=== PATIENT | female | born 1995 | race Caucasian/White ===

== ENCOUNTER → 2017-05-26 03:10 | Outpatient (CLI) | payer MEDICAID, SELFPAY ==
[2017-05-29 10:02] LABS: HPV Reflexed? NOT INDICATED
== END ==
PROVIDERS: Visit Provider Nurse Practitioner Women's Health
DX: Z12.4 Encounter for screening for malignant neoplasm of cervix (principal)
CPT/HCPCS: 88175; G0145

== ENCOUNTER → 2017-09-10 18:16 | Outpatient (CLI) | payer SELFPAY ==
[2017-09-10 20:48] LABS: Chlamydia Trachomatis by PCR Negative (Negative); Neisserai gonorrhoeae by PCR Negative (Negative); Probe Check PASS; Sample Adequacy Control PASS; Specimen Processing Control PASS
== END ==
PROVIDERS: Visit Provider Nurse Practitioner Women's Health
DX: Z11.3 Encounter for screening for infections with a predominantly sexual mode of transmission (principal); N98.9 Complication associated with artificial fertilization, unspecified
CPT/HCPCS: 87070; 87077; 87205; 87491; 87591

== ENCOUNTER 2019-09-05 15:18 | Emergency (ER) | payer MEDICAID, SELFPAY ==
[2019-09-05 15:20] VITALS: BP 116/72; PULSE 88; RESP 17; TEMP 36.4; O2SAT 99; BMI 30.7
[2019-09-05] MEDS: Naproxen 500 MG Tablet PO (16:04)
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
== END 2019-09-05 16:57 | disposition home or self-care (01) ==
PROVIDERS: Emergency Provider Emergency Medicine; PCP Nurse Practitioner Family
DX: R68.84 Jaw pain (principal); Z72.0 Tobacco use
CPT/HCPCS: 70110; 99283

== ENCOUNTER 2019-11-03 14:33 | Emergency (ER) | payer MEDICAID, SELFPAY ==
[2019-11-03 14:34] VITALS: BP 139/80; PULSE 84; RESP 18; TEMP 36.6; O2SAT 99; BMI 29.1
--- NOTE | 2019-11-03 14:38 | ED.RN ---
pt refusing to wear mask when asked to place on her ears and over her nose. pt relpied with If you understood i cant breathe and you cannot deny me care if i don't patient was notified that is what we are asking of everyone right now.
--- NOTE | 2019-11-03 14:48 | RAD_ITS ---
STUDY: X-RAY CHEST REASON FOR EXAM: Female, 23 years old. and quot;I want a chest xray, i have rhonchi in all lobes and no its not the COVID. Its either pneumonia or bronchitis. and quot; pt having cough, running nose and congestion for 1 week. pt thinks both ears are blown TECHNIQUE: PA and lateral views of the chest. COMPARISON: None. FINDINGS: The lungs are clear and expanded. There is no demonstrated pleural abnormality. Normal size heart. Normal mediastinum and stacey. Normal visualized pulmonary arteries. Normal visualized aortic arch and descending thoracic aorta. Normal visualized thoracic spine. Normal visualized ribs, clavicles, and shoulders. There is no demonstrated abnormality of the visualized soft tissue structures of the upper abdomen. RAD/Chest PA and Lateral IMPRESSION: Normal x-ray examination of the chest. Electronically Signed: Josiah Bowman, at 15:13 EDT , Service support ,
--- NOTE | 2019-11-03 15:17 | ED.DCSUM_ITS ---
- ER Visit Summary Date of Service: 11/03/19 Chief Complaint: Cough History of Present Illness: The patient is a 23 F who presents with a cough. She has had this cough for 5 days. She states her cough is been productive of yellow and clear sputum. She believes it is due to allergies. She has had 4 allergy attacks this year. She has had multiple negative coronavirus test. No fevers. She also complains of bilateral ear pain. Her doctor did start her on Claritin daily last month. Physical Examination: Vital signs reviewed. HEENT exam unremarkable. Heart is regular rate and rhythm without murmurs. Lungs have diffuse inspiratory and expiratory wheezes throughout. Abdomen is soft and nontender. Extremities reveal no edema. Skin exam normal. Neurologic exam normal. Test Results: Chest x-ray is normal Emergency Department Course and Treatment: Patient has a normal chest x-ray. I will send her home with albuterol and steroids. She will continue her Claritin daily. Treatment Plan: [] Disposition: Discharge Impression: URI This note was generated with [employer] dictation software. It may contain incorrect words, spelling, and punctuation that were not noted in review of the chart prior to signing ED Disposition - Plan for ED Patient: Disposition: Home or Assisted Living Instructions: ED Upper Resp Infec No Abx Tx Prescriptions: Prednisone [Deltasone] 40 mg PO DAILY #10 tab Transmission Status: Pending to [facility] Albuterol Inhaler [Ventolin Hfa] 1 - 2 puff INHALATION Q4H PRN PRN #1 inhaler PRN Reason: Wheezing Transmission Status: Pending to [facility] Referrals: Zena Galvez NP, SERVICE WORKER HELPER-C [Primary Care Provider] -
== END 2019-11-03 15:35 | disposition home or self-care (01) ==
PROVIDERS: Emergency Provider Emergency Medicine; PCP Nurse Practitioner Family
DX: J06.9 Acute upper respiratory infection, unspecified (principal); Z72.0 Tobacco use
CPT/HCPCS: 71046; 99282

== ENCOUNTER → 2021-07-18 | Outpatient (CLI) | payer MEDICAID, SELFPAY ==
[2021-07-18 15:50] LABS: NATERA MAILED SPECIMEN
== END | disposition home or self-care (01) ==
LOC: LAB 14:48
PROVIDERS: PCP Nurse Practitioner Family; Referring Provider Obstetrics & Gynecology; Visit Provider Obstetrics & Gynecology
DX: Z15.01 Genetic susceptibility to malignant neoplasm of breast (principal); Z80.3 Family history of malignant neoplasm of breast
CPT/HCPCS: 36415

== ENCOUNTER 2021-09-18 07:43 | Day surgery (SDC) | payer MEDICAID, SELFPAY ==
[2021-09-18] VITALS (10 sets, daily range): BP systolic 90–108; BP diastolic 53–73; PULSE 53–70; RESP 11–16; TEMP 36.1–36.6; O2SAT 98–100; BMI 27.3
--- NOTE | 2021-09-18 07:27 | HP.PCM_ITS ---
History and Physical Date of Admission: 09/18/21 MR#: [id number] Acct: [id number] Name:SARAI JAQUEZ Rep #: [id number] : 1995 ? ? Provider: Dr. Luna Dang, DO Age/Sex:? 25/F ? ? Location: [facility] Status: Signed Intake Vital Signs ? 08/22/2210:46 08/22/2210:48 Height 5 ft 4 in 5 ft 4 in Weight: 155 lb 6 oz ? BMI 26.6 ? BP 130/80 H ? 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 Genetic testing of female Social History? Smoking Status:? Current every day smoker alcohol intake:? current details:? occasionally substance use type:? does not use caffeine:? Yes (occasionally) what type of physical activity do you participate in:? none seatbelt use:? sometimes do you feel safe at home:? Yes additional social history:? 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 ?She is a at 25 years old and suffers from heavy periods and does not desire to conceive. Initially she came to me for at tubal ligation and ablation procedure but is too young for an ablation. She is now asking for hysterectomy because control medication has failed her in the past, including mirena IUD. Her last pap in 2020 was negative. She had an ultrasound done at [facility] in May this year that showed a 6 x 4 x 5 cm uterus. Her children were born via vaginal delivery. All STD testing has been negative. Family history of ovarian cancer- Negative empower testing. Pregancy History ? ? ? 2 ? Elective abortions ? Hx Para ? ? ? 2 ? Spontaneous abortions ? Hx # Term Pregnancies ? Ectopic pregnancies ? Hx # Pregnancies ? Multiple births ? # of living children ? Past Pregnancies Del. Date Name GA/Weeks Outcome Route Bth Weight Infant Gen Labor Lgth AnesthesiaB Del Locatn Provider FOB 08/20/13 Ayden ? live - full term N ? Male ? ? [facility] Dr. Mendez ? 05/21/16 Susie ? live - full term ? Male ? ? [facility] Dr. Mckeon ? ROS Const ROS Unobtainable: All systems reviewed & are unremarkable except as noted in H Resp Resp: Reports system reviewed and no additional complaints, except as documented; Denies cough GI GI: Reports as per HPI Psych Psych: Reports system reviewed and no additional complaints, except as documented Exam Const General: cooperative, healthy appearing, comfortable and no acute distress Resp Effort & Inspection: normal respiratory effort Skin General: no rashes or lesions noted Psych Appearance: grossly normal Speech and Movement: speech and movement normal Coding Level of Care Code Off vis,est,level 4 Diagnoses Menorrhagia? N92.0 Assessment and Plan Assessment and Plan (1) Menorrhagia: ?Status:?Acute Plan After discussing the patient's diagnosis and treatment plan options, patient wishes to proceed with surgical management.? I have discussed with the patient the risks, benefits, and alternatives of the procedure which include but are not limited to risks of anesthesia, bleeding, infection, possible damage to bowel, bladder, or surrounding vasculature which could lead to additional surgery to evaluate any complications.? Patient agrees to procedure and wishes to proceed.? ACOG/uptodate references given for additional information regarding procedure.? plan for hysterectomy (LAVH) with bilateral salpingectomy, and possible cystoscopy. UPDATE- I have seen the patient and performed any clinically relevant updates to the history and physical exam. Luna Dang DO
[2021-09-18 08:29] LABS: Internal QC Validated? YES +Cl - CLEAR BKGD; Pregnancy, Urine Negative Negative
[2021-09-18] MEDS: Celecoxib 200 MG Capsule 400 MG PO (08:30)
[2021-09-18] MEDS: Acetaminophen 500 MG Tablet 1000 MG PO (08:30)
[2021-09-18] MEDS: Gabapentin 600 MG Tablet PO (08:31)
[2021-09-18] MEDS: Lactated Ringers 1,000 ML 40 ML IV (08:49)
[2021-09-18 08:54] LABS: Hematocrit 37.8 % (37-47); Hemoglobin 12.2 g/dL (12.0-15.0); Mean Corp Hgb Conc 32.3 g/dL (32-36); Mean Corpuscular Hgb 29.8 pg (27.0-32.0); Mean Corpuscular Volume 92.4 fL (81-99); Mean Platelet Vol. 9.4 fl (6.2-12.0); Platelet Count 233 K/mm3 (150-450); RBC Distribution Width CV 12.1 % (11.6-14.6); RBC Distribution Width SD 40.9 fl (35.1-43.9); Red Blood Count 4.09 M/mm3 (4.2-5.4); White Blood Count 7.6 K/mm3 (4.4-11.0)
[2021-09-18 09:20] LABS: Bedside Glucose 80 mg/dL (74-106)
--- NOTE | 2021-09-18 09:23 | DCINST_ITS ---
Discharge Instructions Diet Discharge Diet: No restrictions Activity May resume sexual activity in: 6 weeks Weight Bearing Status: Full weight bearing Dressing / Incision Call your doctor if your incision/area has: Continuous Slow Oozing, Sudden Increased Bleeding, Increased Pain/ Swelling, Increased Redness and Foul Smelling Discharge Call your doctor if you observe: Fever of 101 or Higher, Using more than 1 pad per hour, Shortness of breath, Chest pain and Uncontrolled pain Suture Line Care: Avoid Pulling/Pushing and Avoid Pinching/Bending Remove Dressing in: 1 week (if present) Cleanse incision/area with: Soap & Water and Keep Dressing Clean & Dry Follow Up Care Please Follow Up With: Luna Dang DO When: Call to make an appointment with your doctor for a postop visit in 2 and 6 weeks Test Results: Test results from this visit will be discussed in further detail at your follow- up appointment, if applicable. Discharge Plan Admission Primary Reason for Your Visit: hysterectomy Attending Provider: Luna Dang Primary Care Provider: Beryl Mosquera Discharge Orders/Prescriptions Prescriptions: New ibuprofen 600 mg tablet 600 mg PO Q6H PRN (Reason: pain) 7 Days Qty: 30 0RF Rx Instructions: take as needed for pain with meals oxycodone-acetaminophen [Percocet] 5-325 mg tablet 1 tab PO Q4H PRN (Reason: pain) 7 Days Qty: 30 0RF Continued dextroamphetamine-amphetamine [Adderall] 30 mg tablet 20 mg PO DAILY hydroxyzine pamoate [Vistaril] 25 mg capsule 25 mg PO PRN PRN (Reason: Anxiety) multivitamin Tablet 1 tab PO DAILY dextroamphetamine-amphetamine [Adderall] 20 mg Tablet 10 mg PO 1200 Discontinued norethindrone ac-eth estradiol [03/15 (21)] 1-20 mg-mcg tablet 1 tab PO DAILY Referrals / Follow Up: Beryl Mosquera DO [Primary Care Provider] - Disposition Disposition (needs filled in before D/C Order can be placed): Home, Self Care
[2021-09-18] MEDS: Lubricating Jelly 60 GM Tube 30 GM (10:00)
--- NOTE | 2021-09-18 10:00 | HYST_PTH ---
PATIENT: SARAI CHE LOC: [facility] U#:[id number] AGE/SX: ROOM: RE09/18/[address]: Dr. Luna Dang DO : 1995 BED: DIS: 09/18/2021 SPEC #: [id number] RECD: 09/18/21 11:20 STATUS: GERTRUDE SOL #: [id number] SAÚL: 09/18/21 10:[address]: Luna Dang DEPT: SURGICAL PATHOLOGY RECD BY: Mitesh Rogers ENTERED: 09/18/21 11:51 SP TYPE: HYSTERECT OTHR DR: Dr. Beryl Mosquera DO Tissues: Uterus, NOS Procedures: Surgery Specimen Level V HEADER OPERATION: ERAS, laparoscopic assisted vaginal hysterectomy, bilateral salpingectomy PRE-OP DIAGNOSIS: Menorrhagia TISSUE SUBMITTED: Uterus, cervix, bilateral fallopian tubes MICROSCOPIC DIAGNOSIS Uterus, cervix, bilateral fallopian tubes, vaginal hysterectomy and bilateral salpingectomy: Cervix ? chronic inflammation. Endometrium ? proliferative endometrium. Myometrium - no pathologic diagnosis. Bilateral fallopian tubes - no pathologic diagnosis. Left paratubal cyst. SJ:rg 09/19/2021 MICROSCOPIC DESCRIPTION Slides are reviewed. GROSS DESCRIPTION Received in fixative is one container labeled with the patient's name and designated uterus, cervix, bilateral fallopian tubes. The specimen consists of a hysterectomy specimen consisting of uterus with cervix and attached bilateral fallopian tubes. The uterus with cervix weighs 86 gm and measures 8.5 x 5.5 x 3.5 cm. The serosal surface is mcdaniel, glistening. The ectocervical mucosa is focally eroded. The external os is oval in contour. The endocervical canal measures 3.5 cm in length. The endocervical mucosa is mcdaniel, glistening and unremarkable. The triangular endometrial cavity measures 3.5 cm in length and 2.5 cm in width. The endometrium is mcdaniel-pink, glistening without any mass lesion and measures 0.1 cm in thickness. Sections of the uterine wall does not reveal any mass lesion and measures 2.3 cm in thickness. The right fallopian tube measures 6 cm in length and 0.5 cm in diameter. The fimbrial end is identified. Sections reveal unremarkable cut surfaces. The left fallopian tube is similar appearance to right and measures 6 cm in length and 0.5 cm in diameter. A paratubal cyst is noted measuring 1 cm in greatest dimension. The cyst is filled with clear fluid. [employer] sections are submitted in eight cassettes as follows: 1 - anterior cervix, 2 - posterior cervix, 3 & 4 - anterior uterine wall, 5 & 6 - posterior uterine wall, 7 - right fallopian tube, 8 - left fallopian tube and paratubal cyst. / AZAEL:julio c 09/18/2021 TC:3 CPT: 22359
[2021-09-18] MEDS: Lactated Ringers 1,000 ML 125 ML IV (10:15)
[2021-09-18] MEDS: Bupivacaine 0.25% 30 ML Vial (10:20)
--- NOTE | 2021-09-18 11:11 | PCM.OP.BLANK ---
Problems Associated Problem List Diagnoses (1) Menorrhagia: Operative Report Date of Procedure: 09/18/21 Pre-operative diagnosis: Menorrhagia Post-operative diagnosis: menorrhagia Surgery: LAVH, Bilateral salpingectomy, Cystoscopy Surgeon : Dr. Luna Dang DO Rotary Rock Drilling Machine Operator: SHANDA rBown EBL: 60cc urine output: 300cc IV fluids: 500cc Complications: none implanted material: none Details: Patient received preoperative antibiotics and SCDs were on preoperatively. Patient was taken back to the operating room and placed in the dorsal lithotomy position. General anesthesia was induced and patient was prepped and draped in normal sterile fashion. Uterine manipulator was placed inside the uterus and Wilson catheter placed in the bladder. The umbilicus was grasped with towel clamps and an intraumbilical incision was made after injecting with quarter percent Marcaine and a 5 mm torcar was inserted into the abdomen under direct visualization using the 5 mm laparoscope. The abdomen was insufflated with CO2 gas. Right and left lower quadrants were transilluminated and injected with quarter percent Marcaine and 5 mm ports placed under direct visualization. Pelvis was well visualized see operative findings for additional information. Bilateral fallopian tubes were identified and transected with the Enseal device across the mesosalpinx to the level of the utero-ovarian ligament which was also transected with the Enseal device. The broad ligament was opened up by transecting the round ligament bilaterally and skeletonizing the uterine vessels bilaterally and creating a bladder flap using the LigaSure device. The uterine arteries were transected bilaterally with good visualization of the bladder and the ureters were seen to be inferior lateral to the operative area. Attention was then paid to the vaginal portion of the procedure and the cervix was grasped with Kendrick clamps and circumferentially injected with 0.25% marcaine. A circumferential incision was made and the vaginal mucosa was mobilized off posteriorly and the cul-de-sac entered into sharply and a longneck speculum placed. The anterior cul-de-sac was then identified and entered into sharply. The uterosacral ligaments were clamped cut and suture ligated with 0 Monocryl bilaterally followed by the cardinal ligaments which were clamped cut and suture ligated bilaterally with 0 Monocryl. The uterus serially descended and was removed without difficulty with minimal morcellation. Pelvic sidewall pedicles were checked and noted to have excellent hemostasis. The vaginal mucosa was reapproximated incorporating the posterior peritoneum. This was reapproximated using 0 Vicryl eohbko-tr-yzcoy sutures. Excellent hemostasis was noted. The cystoscopy was then performed and bilateral ureteral strong spray was noted and the bladder was noted to have no abnormality or lesions seen. Wilson catheter was replaced and then attention paid to the abdominal portion of the procedure again. The pelvis and cul-de-sac was well visualized and no significant active bleeding noted but some raw areas were seen on the peritoneum and therefore Migel was applied. Pressure was taken down and the areas visualized and noted of excellent hemostasis other than a small amount of oozing on the posterior wall of the bladder. FloSeal was applied to this area. All ports were removed under direct visualization without complication and the abdomen was desufflated of air. The instruments removed from the abdomen and the vagina vaginal sweep was negative. Port sites on the abdomen were closed with 4-0 Monocryl interrupted sutures and Steri's and windows were applied. She was awoken and taken recovery in stable condition. Multi Select Codes Urinary/Genital Urinary/Genital CPT Codes: 06472 Cystoscopy and 35934 LAVH+BS/O <250gr Uterus
== END 2021-09-18 14:58 | disposition home or self-care (01) ==
LOC: SDC 07:44 → AC 07:45
PROVIDERS: Anesthesiology; PCP Family Medicine; Referring Provider Obstetrics & Gynecology; Visit Provider Obstetrics & Gynecology
PROC: 0UT9FZZ Resection of Uterus, Via Natural or Artificial Opening With Percutaneous Endoscopic Assistance (ICD-10-PCS; CPT 58552; principal; 2021-09-18 09:35)
DX: N92.0 Excessive and frequent menstruation with regular cycle (principal); N83.8 Other noninflammatory disorders of ovary, fallopian tube and broad ligament; F17.290 Nicotine dependence, other tobacco product, uncomplicated
CPT/HCPCS: 58552; 00944; 81025; 82962; 83735; 85027; 86850; 86900; 86901; 88307; J7120; C1760; J2405; J3475